=== PATIENT | male | born 1955 | race Caucasian/White ===

== ENCOUNTER 2020-06-08 07:55 | Outpatient (CLI) | payer MEDICARE ==
[2020-06-08 15:12] LABS: Bilirubin Neg (Negative); Blood, Urine Negative (Negative); Clarity Clear (Clear); Glucose, Urine (Dipstick) Normal (Negative); Ketone, Urine Negative (Negative); Leukocyte Negative (Negative); Nitrite Negative (Negative); Protein, Urine (Dipstick) Negative (Neg-Trace); Specific Gravity, Urine 1.015 (1.002-1.036)
[2020-06-08 15:19] LABS: #Basophils 0.1 10x3/uL (0.0-0.2); #Eosinphils 0.2 10x3/uL (0.0-0.5); #Monocytes 0.5 10x3/uL (0.0-1.1); #Neutrophils 4.7 10x3/uL (1.5-8.4); %Basophils 0.8 % (0.0-2.0); %Eosinophils 2.8 % (0.0-6.0); %Lymphocytes 16.2 % (18.0-47.0); %Monocytes 7.8 % (0.0-10.0); %Neutrophils 72.1 % (40.0-75.0); Hemoglobin 14.7 g/dL (14.0-18.0); Mean Corpuscular HGB CONC 33.6 G/DL (32.0-36.0); Mean Corpuscular Hemoglobin 34.2 PG (27.0-33.0); Mean Corpuscular Volume 101.6 fl (80.0-100.0); Mean Platelet Volume 10.7 fl (7.4-10.4); Platelet Count 185 10x3/uL (130-400); RBC Distribution Width 12.1 % (11.5-14.5); White Blood Cell (WBC) Count 6.5 10x3/uL (4.5-11.0)
[2020-06-08 15:25] LABS: RBC/HPF 0-3 HPF (0-3)
[2020-06-08 15:26] LABS: Bacteria/HPF None Seen HPF (None Seen); WBC/HPF 0-3 HPF (0-3)
[2020-06-09 02:03] LABS: SARS-CoV-2 MS2 Positive; SARS-CoV-2 N Gene Negative; SARS-CoV-2 S Gene Negative; SARS-CoV-2 by NAA Not Detected (NotDetected); SARS-CoV-2 orf1ab Negative
== END 2020-06-08 07:56 | disposition home or self-care (01) ==
LOC: LABBT 07:55
PROVIDERS: ATTEND Orthopaedic Surgery Hand Surgery
DX: Z01.818 Encounter for other preprocedural examination (principal); Z20.828 Contact with and (suspected) exposure to other viral communicable diseases; M65.312 Trigger thumb, left thumb; M18.12 Unilateral primary osteoarthritis of first carpometacarpal joint, left hand
CPT/HCPCS: 81001; 85025; 93005; U0003; 87635; 93010

== ENCOUNTER 2020-06-13 06:10 | Day surgery (SDC) | payer MEDICARE ==
[2020-06-12 11:09] VITALS: BMI 34.4
[2020-06-13] MEDS ORDERED: Dexamethasone 4 mg/ml Vial ONE (08:29)
[2020-06-13] MEDS ORDERED: Midazolam HCl 2 mg/2 ml Vial ONE (08:38)
[2020-06-13] MEDS ORDERED: Fentanyl 100 MCG/2 ML VIAL ONE ×3 (08:38→08:53)
[2020-06-13] MEDS ORDERED: Bupivacaine PF 0.5% 30 ML VIAL ONE (08:59)
[2020-06-13] MEDS ORDERED: Betamet Acet/Betamet Na Ph 30 MG/5 ML VIAL ONE (08:59)
[2020-06-13] MEDS ORDERED: Sodium Chloride 0.9% 10 ML ONE (08:59)
[2020-06-13] MEDS ORDERED: Bacitracin Zinc Ointment 30 gm TUBE ONE (08:59)
[2020-06-13] MEDS ORDERED: Bupivacaine HCl 0.5%/Epinephrine 1:200,000/PF 30 ml Vial ONE (09:52)
[2020-06-13] MEDS ORDERED: Dexamethasone 20 MG/5 ML VIAL ONE (09:52)
[2020-06-13] MEDS ORDERED: Lidocaine 1% PF 5 ML VIAL ONE (09:52)
[2020-06-13] MEDS ORDERED: Ondansetron PF 4 MG/2 ML Vial ONE (09:52)
[2020-06-13] MEDS ORDERED: PROPOFOL 200 MG/20 ML VIAL ONE (09:52)
--- NOTE | 2020-06-13 11:54 | RAD ---
Exam: XR Hand Lt 2 View HISTORY: Left thumb carpometacarpal joint arthroplasty COMPARISON: 04/17/2020 FINDINGS/IMPRESSION: 3 intraoperative fluoroscopic images of the left hand/wrist are submitted. Images demonstrate 2 small metallic pins overlying the base of the metacarpals of the thumb and index finger. The trapezium bone is not visualized likely attributable to postoperative change. Correlation with intraoperative f indings is recommended. Fluoroscopy: Time-34 seconds Dose-0.294 mGy
[2020-06-13] MEDS ORDERED: HYDROcodone/Acetaminophen 5/325 mg Tablet ONE (13:14)
--- NOTE | 2020-06-14 08:28 | OP ---
DATE OF PROCEDURE: 06/13/2020 PREOPERATIVE DIAGNOSES: Left thumb osteoarthritis CMC, also left thumb trigger digit. POSTOPERATIVE DIAGNOSES: Left trigger thumb and left thumb osteoarthritis CMC joint with 80% erosion of the chondral surface on both sides of the joint. Large osteophytes and Rice loose bodies. The patient failed conservative treatment for all of these and thus the operation described was indicated. ANESTHESIA: General LMA support block given, axillary one-shot 24 hours. PROCEDURE PERFORMED: 1. Left trigger thumb release. 2. Left ligament replacement tendon position for flexor carpi radialis tendon transfer. 3. C-arm. 4. Short-arm splint application. 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 DESCRIPTION OF PROCEDURE: After successful general endotracheal anesthesia, limb was prepped and draped. After successful block, an augmented LMA technique was used to augment the block and we prepped and draped the limb. Time-out was done appropriately. We outlined incision in a zigzag Elvie fashion palmar and slightly more ulnar than radial at the MP flexion crease over the mass consistent with the A1 rhys. We exsanguinated the limb, inflated tourniquet to 250 mmHg pressure and made this incision, carried through skin and subcutaneous tissue. We identified the digital nerve branches and protected them. Then we found the A1 rhys, protected these nerves and in the midline, with Mineral blade, released them. We elevated, tented up until we saw no tenosynovitis and we were happy with this. We closed the incision with interrupted 4-0 nylon and we then approached the palmar primary approach to the carpometacarpal joint. A J-shaped hockey stick incision was made, carried through skin and subcutaneous tissue until we found the the median nerve innervation and radial nerve innervation. Then, the patient had the incision of the carpometacarpal joint developed until we finished the interval protecting the degree of cutaneous nerves, identified the FCR deep in the wound. Once we identified the FCR, we then split the difference between the extensor tendons at the base of the thumb, abducted, found all joint capsule, tagged it with a cut and tagged 0 Vicryl until we could get the capsule away from the joint. Once this was done, we dissected the radial aspect sharply and bluntly alternate and then on the ulnar aspect, we completely the column of the thenar muscles from the bone until we could see the entire flexor carpi radialis tendon and joint complex. We then identified the trapezium. Once we had identified the joint, tagged the capsule, we placed a cannulated threaded wire and evaluated this in frontal sagittal plane until we are happy with position and we placed a corkscrew from [employer] in the trapezium so it could be manipulated. We protected the flexor carpi radialis throughout the entire dissection, identified the palmar. The patient then had the thumb rotated appropriate nail bed parallel to the palm, we drilled a guidewire in the center beginning 15 mm from the proximal end of the thumb metacarpal into the more ulnar aspect of the thumb. The carpometacarpal joint with the index finger until we found it was in a perfect position. We removed all soft tissues. We then, in order to the patient now had cannulated screw over the guidewire and screw and then freehand with the large curette. Then, the patient was able to have the FCR graft harvested for tendon transfer for first, second metacarpal bases by making 2 incisions; one one-third away from the musculotendinous junction and the other junction. These were developed, denuded of all excess muscle and brought to the wound. At the wrist wound, one-third of the diameter were removed in order to pass through the tunnel. This was done without complication. Once we had done this, we then were able to secure the flexor carpi radialis after pinning it in appropriate position with 2 K-wires from the lateral wall. The two projections did not show any other abnormality. We then made portion of the LRTI, tied it on itself with excellent coaptation. Then the patient left the operating room without evidence of anesthetic or operative complication. Job ID: [id number]
== END 2020-06-13 14:53 | disposition home or self-care (01) ==
LOC: SDC 06:10
PROVIDERS: ATTEND Orthopaedic Surgery Hand Surgery
PROC: 0LN80ZZ Release Left Hand Tendon, Open Approach (ICD-10-PCS; principal; 2020-06-13)
PROC: 0LX60ZZ Transfer Left Lower Arm and Wrist Tendon, Open Approach (ICD-10-PCS; 2020-06-13)
PROC: 0RUT07Z Supplement Left Carpometacarpal Joint with Autologous Tissue Substitute, Open Approach (ICD-10-PCS; 2020-06-13)
PROC: 3E0T3BZ Introduction of Anesthetic Agent into Peripheral Nerves and Plexi, Percutaneous Approach (ICD-10-PCS; 2020-06-13)
DX: M18.0 Bilateral primary osteoarthritis of first carpometacarpal joints (principal); M65.312 Trigger thumb, left thumb; M19.041 Primary osteoarthritis, right hand; M19.042 Primary osteoarthritis, left hand; G89.18 Other acute postprocedural pain; F17.290 Nicotine dependence, other tobacco product, uncomplicated; Z98.84 Bariatric surgery status
CPT/HCPCS: 76000; C1713; J0690; J0702; J1100; J2250; J2405; J2704; J3010; J3490; S0020

== ENCOUNTER 2021-03-02 12:53 | Outpatient (CLI) | payer MEDICARE ==
[2021-03-02 14:44] LABS: #Basophils 0.1 10x3/uL (0.0-0.2); #Eosinphils 0.2 10x3/uL (0.0-0.5); #Monocytes 0.5 10x3/uL (0.0-1.1); #Neutrophils 3.6 10x3/uL (1.5-8.4); %Eosinophils 3.3 % (0.0-6.0); %Lymphocytes 17.5 % (18.0-47.0); %Monocytes 8.7 % (0.0-10.0); %Neutrophils 69.3 % (40.0-75.0); Hemoglobin 14.2 g/dL (13.5-17.5); Mean Corpuscular HGB CONC 33.4 g/dL (32.0-36.0); Mean Corpuscular Hemoglobin 33.6 pg (27.0-33.0); Mean Corpuscular Volume 100.5 fl (81.2-95.1); Mean Platelet Volume 10.5 fl (7.4-10.4); Platelet Count 179 10x3/uL (150-450); RBC Distribution Width 12.6 % (11.5-14.5); Red Blood Cell (RBC) Count 4.23 10x6/uL (4.32-5.72); White Blood Cell (WBC) Count 5.2 10x3/uL (3.5-10.5)
[2021-03-04 00:17] LABS: SARS-CoV-2 PCR by NAA Not Detected (NotDetected)
== END 2021-03-02 12:54 | disposition home or self-care (01) ==
LOC: LABBT 12:53
PROVIDERS: ATTEND Orthopaedic Surgery Hand Surgery
DX: Z01.818 Encounter for other preprocedural examination (principal); M65.4 Radial styloid tenosynovitis [de Quervain]; Z20.822 Contact with and (suspected) exposure to COVID-19
CPT/HCPCS: 85025; 93005; U0003; U0005; 93010

== ENCOUNTER 2021-03-06 05:43 | Day surgery (SDC) | payer MEDICARE ==
[2021-03-05 10:28] VITALS: BMI 35.5
[2021-03-06] MEDS ORDERED: Bacitracin Zinc Ointment 30 gm TUBE ONE (06:36)
[2021-03-06] MEDS ORDERED: Bupivacaine PF 0.5% 30 ML VIAL ONE (06:36)
[2021-03-06] MEDS ORDERED: Betamet Acet/Betamet Na Ph 30 MG/5 ML VIAL ONE (06:36)
[2021-03-06] MEDS ORDERED: Neomycin-Polymyxin 1 ML AMP ONE (06:36)
[2021-03-06] MEDS ORDERED: Dexamethasone 20 MG/5 ML VIAL ONE (07:06)
[2021-03-06] MEDS ORDERED: PROPOFOL 200 MG/20 ML VIAL ONE (07:06)
[2021-03-06] MEDS ORDERED: Ketorolac Tromethamine 30 MG/ML VIAL ONE (07:06)
[2021-03-06] MEDS ORDERED: Ondansetron PF 4 MG/2 ML Vial ONE (07:06)
[2021-03-06] MEDS ORDERED: Fentanyl 100 MCG/2 ML VIAL ONE (07:20)
[2021-03-06] MEDS ORDERED: HYDROcodone/Acetaminophen 5/325 mg Tablet ONE (08:47)
== END 2021-03-06 09:37 | disposition home or self-care (01) ==
LOC: SDC 05:43
PROVIDERS: ATTEND Orthopaedic Surgery Hand Surgery
PROC: 0LN60ZZ Release Left Lower Arm and Wrist Tendon, Open Approach (ICD-10-PCS; principal; 2021-03-06)
PROC: 0LB60ZZ Excision of Left Lower Arm and Wrist Tendon, Open Approach (ICD-10-PCS; 2021-03-06)
DX: M65.842 Other synovitis and tenosynovitis, left hand (principal); M65.4 Radial styloid tenosynovitis [de Quervain]; Z98.84 Bariatric surgery status; Z96.653 Presence of artificial knee joint, bilateral
CPT/HCPCS: 88305; J0690; J0702; J1100; J1885; J2405; J2704; J3010; S0020

== ENCOUNTER 2021-12-13 17:37 | Emergency (ER) | payer MEDICARE ==
[2021-12-13] MEDS ORDERED: Proparacaine 0.5% Opth 15 ML BOT ONE (20:26)
[2021-12-13] MEDS ORDERED: Boostrix 0.5 ML (Tdap) VIAL ONE (20:26)
[2021-12-13] MEDS ORDERED: Fluorescein Opthalmic Strip ONE (20:31)
== END 2021-12-13 21:09 | disposition home or self-care (01) ==
LOC: ERS 17:37
DX: S05.01XA Injury of conjunctiva and corneal abrasion without foreign body, right eye, initial encounter (principal); H11.31 Conjunctival hemorrhage, right eye; X58.XXXA Exposure to other specified factors, initial encounter
CPT/HCPCS: 90471; 90715

== ENCOUNTER 2022-02-08 10:35 | Outpatient (CLI) | payer MEDICARE ==
[2022-02-08 12:06] LABS: #Eosinphils 0.2 10x3/uL (0.0-0.5); #Monocytes 0.6 10x3/uL (0.0-1.1); #Neutrophils 3.6 10x3/uL (1.5-8.4); %Basophils 0.7 % (0.0-2.0); %Eosinophils 3.7 % (0.0-6.0); %Lymphocytes 18.1 % (18.0-47.0); %Monocytes 11.7 % (0.0-10.0); %Neutrophils 65.4 % (40.0-75.0); Hemoglobin 14.7 g/dL (13.5-17.5); Mean Corpuscular HGB CONC 34.6 g/dL (32.0-36.0); Mean Corpuscular Hemoglobin 34.3 pg (27.0-33.0); Mean Corpuscular Volume 99.3 fl (81.2-95.1); Mean Platelet Volume 10.2 fl (7.4-10.4); Platelet Count 174 10x3/uL (150-450); RBC Distribution Width 12.3 % (11.5-14.5); Red Blood Cell (RBC) Count 4.28 10x6/uL (4.32-5.72); White Blood Cell (WBC) Count 5.5 10x3/uL (3.5-10.5)
== END 2022-02-08 10:36 | disposition home or self-care (01) ==
LOC: LABBT 10:35
PROVIDERS: ATTEND Orthopaedic Surgery Hand Surgery
DX: Z01.818 Encounter for other preprocedural examination (principal); M65.331 Trigger finger, right middle finger; Z20.822 Contact with and (suspected) exposure to COVID-19
CPT/HCPCS: 85025; 87811; 93005; 93010

== ENCOUNTER 2022-02-12 09:32 | Day surgery (SDC) | payer MEDICARE ==
[2022-02-08 13:49] VITALS: BMI 35.5
[2022-02-12] MEDS ORDERED: Bacitracin Zinc Ointment 30 gm TUBE ONE (11:12)
[2022-02-12] MEDS ORDERED: Bupivacaine PF 0.5% 30 ML VIAL ONE (11:12)
[2022-02-12] MEDS ORDERED: Betamet Acet/Betamet Na Ph 30 MG/5 ML VIAL ONE (11:12)
[2022-02-12] MEDS ORDERED: fentaNYL Citrate/PF 100 MCG/2 ML SYRINGE ONE (13:56)
[2022-02-12] MEDS ORDERED: CEFAZOLIN 2 GM VIAL ONE (14:09)
[2022-02-12] MEDS ORDERED: Sodium Chloride 0.9% 100 ML ONE (14:09)
[2022-02-12] MEDS ORDERED: PROPOFOL 200 MG/20 ML VIAL ONE (14:20)
[2022-02-12] MEDS ORDERED: ePHEDrine 50 MG/ML VIAL ONE (14:20)
[2022-02-12] MEDS ORDERED: Ondansetron PF 4 MG/2 ML Vial ONE (14:20)
[2022-02-12] MEDS ORDERED: Dexamethasone 20 MG/5 ML VIAL ONE (14:20)
[2022-02-12] MEDS ORDERED: Lidocaine 1% MPF 2 ML VIAL ONE (14:20)
[2022-02-12] MEDS ORDERED: Ketorolac Tromethamine 30 MG/ML VIAL ONE (15:33)
== END 2022-02-12 16:29 | disposition home or self-care (01) ==
LOC: SDC 09:32
PROVIDERS: ATTEND Orthopaedic Surgery Hand Surgery
PROC: 0LN70ZZ Release Right Hand Tendon, Open Approach (ICD-10-PCS; principal; 2022-02-12)
DX: M65.331 Trigger finger, right middle finger (principal); F17.290 Nicotine dependence, other tobacco product, uncomplicated
CPT/HCPCS: J0690; J0702; J1100; J1885; J2405; J2704; J3490; S0020

== ENCOUNTER 2022-02-21 15:30 | Inpatient (IN) | payer MEDICARE ==
[2022-02-21 17:10] LABS: #Eosinphils 0.1 thou/uL (0.0-0.7); #Lymphocytes 1.1 thou/uL (1.20-3.40); #Monocytes 0.8 thou/uL (0.11-0.59); #Neutrophils 5.9 thou/uL (1.40-6.50); %Eosinophils 1.4 % (0.0-10.0); %Lymphocytes 13.7 % (21.0-51.0); %Monocytes 9.6 % (0.0-10.0); %Neutrophils 75.3 % (42.0-75.0); Hemoglobin 14.1 g/dL (14.0-18.0); Mean Corpuscular Hemoglobin 35.9 pg (27.0-31.0); Mean Platelet Volume 8.3 fL (7.4-10.4); Platelet Count 169 thou/uL (130-400); RBC Distribution Width 11.7 % (11.5-14.5); Red Blood Cell (RBC) Count 3.92 mill/uL (4.70-6.10); White Blood Cell (WBC) Count 7.8 thou/uL (4.8-10.8)
[2022-02-21] MEDS ORDERED: fentaNYL Citrate/PF 100 MCG/2 ML SYRINGE ONE (19:16)
[2022-02-21] MEDS ORDERED: Bupivacaine PF 0.5% 30 ML VIAL ONE (19:26)
[2022-02-21] MEDS ORDERED: Bacitracin Zinc Ointment 30 gm TUBE ONE (19:26)
[2022-02-21] MEDS ORDERED: Neomycin-Polymyxin 1 ML AMP ONE (19:26)
[2022-02-21] MEDS ORDERED: PROPOFOL 200 MG/20 ML VIAL ONE (19:45)
[2022-02-21] MEDS ORDERED: Ondansetron PF 4 MG/2 ML Vial ONE (19:45)
[2022-02-21] MEDS ORDERED: Lidocaine 1% MPF 2 ML VIAL ONE (19:45)
[2022-02-21] MEDS ORDERED: Fentanyl 100 MCG/2 ML VIAL ONE ×2 (20:57→21:33)
[2022-02-21] MEDS ORDERED: Fentanyl 100 MCG/2 ML VIAL SLOW IVP PRN (21:01)
[2022-02-21] MEDS ORDERED: HYDROcodone/Acetaminophen 5/325 mg Tablet PO PRN (21:01)
[2022-02-21] MEDS ORDERED: Acetaminophen 325 MG TAB PO PRN (21:01)
[2022-02-21] MEDS ORDERED: Meperidine HCl/PF 25 MG/ML VIAL IM PRN (21:05)
[2022-02-21] MEDS ORDERED: Ketorolac Tromethamine 30 MG/ML VIAL IVP PRN (21:07)
[2022-02-21] MEDS ORDERED: Communication Order-Pharmacy FS PRN (21:15)
[2022-02-21] MEDS ORDERED: Levofloxacin 500 mg/D5W 100 ml Premix Bag ONE (21:50)
[2022-02-21] MEDS ORDERED: TETANUS AND DIPHTHERIA TOX/PF 0.5 ML DISP.SYRIN IM SCH (22:00)
[2022-02-21 22:39] VITALS: BMI 36.9
[2022-02-21] MEDS: HYDROcodone/Acetaminophen 10/325 mg Tablet PO PRN (23:39)
[2022-02-22] MEDS ORDERED: Pen G 2.5 MILL.UNITS/50 ML BAG IVPB SCH (01:00)
[2022-02-22] MEDS: Gentamicin 80 MG/2 ML VIAL IM SCH ×3 (01:04→15:24)
[2022-02-22] MEDS: Vancomycin 1.5 GRAM/300 ML BAG 1.5 GM in Premix Bag 1 BAG IVPB SCH ×2 (01:04→11:36)
[2022-02-22] MEDS: Penicillin G Potassium 2.5 MILL.UNITS in Sodium Chloride 0.9% 50 ML IVPB SCH ×6 (05:00→22:07)
[2022-02-22 06:07] LABS: #Eosinphils 0.1 thou/uL (0.0-0.7); #Lymphocytes 1.4 thou/uL (1.20-3.40); #Monocytes 0.9 thou/uL (0.11-0.59); #Neutrophils 4.2 thou/uL (1.40-6.50); %Basophils 0.6 % (0.0-1.0); %Eosinophils 1.8 % (0.0-10.0); %Lymphocytes 21.5 % (21.0-51.0); %Monocytes 13.6 % (0.0-10.0); %Neutrophils 62.5 % (42.0-75.0); Mean Corpuscular Hemoglobin 35.2 pg (27.0-31.0); Mean Platelet Volume 8.3 fL (7.4-10.4); Platelet Count 156 thou/uL (130-400); RBC Distribution Width 11.9 % (11.5-14.5); Red Blood Cell (RBC) Count 3.71 mill/uL (4.70-6.10); White Blood Cell (WBC) Count 6.7 thou/uL (4.8-10.8)
[2022-02-22] MEDS: Aspirin 81 mg Enteric Coated Tablet PO SCH ×2 (09:22→21:12)
[2022-02-22] MEDS: HYDROcodone/Acetaminophen 10/325 mg Tablet PO PRN ×3 (09:27→21:48)
[2022-02-22] MEDS: Morphine 4 MG/ML VIAL SLOW IVP PRN (18:18)
[2022-02-22] MEDS: Gentamicin Sulfate 80 MG in Premix Bag 1 BAG IVPB SCH (23:32)
[2022-02-23] MEDS: Vancomycin 1.5 GRAM/300 ML BAG 1.5 GM in Premix Bag 1 BAG IVPB SCH ×3 (01:17→23:50)
[2022-02-23] MEDS: Penicillin G Potassium 2.5 MILL.UNITS in Sodium Chloride 0.9% 50 ML IVPB SCH ×6 (03:01→21:43)
[2022-02-23] MEDS: Gentamicin Sulfate 80 MG in Premix Bag 1 BAG IVPB SCH ×3 (06:29→20:18)
[2022-02-23] MEDS: HYDROcodone/Acetaminophen 10/325 mg Tablet PO PRN ×3 (08:19→23:57)
[2022-02-23] MEDS: Aspirin 81 mg Enteric Coated Tablet PO SCH ×2 (08:19→20:21)
[2022-02-23] MEDS ORDERED: hydrALAZINE 20 MG/ML VIAL SLOW IVP PRN (08:39)
[2022-02-23] MEDS ORDERED: Amlodipine 5 MG TAB PO SCH (09:00)
[2022-02-23 10:30] LABS: Vancomycin, Trough 11.1 ug/mL
[2022-02-23] MEDS: Morphine 4 MG/ML VIAL SLOW IVP PRN (14:31)
[2022-02-23] MEDS: traMADol HCl 50 MG TAB PO PRN (20:21)
[2022-02-24] MEDS: HYDROcodone/Acetaminophen 10/325 mg Tablet PO PRN (05:13)
[2022-02-24] MEDS: Gentamicin Sulfate 80 MG in Premix Bag 1 BAG IVPB SCH (05:14)
[2022-02-24] MEDS: Morphine 4 MG/ML VIAL SLOW IVP PRN (07:28)
[2022-02-24] MEDS: traMADol HCl 50 MG TAB PO PRN (08:47)
[2022-02-24] MEDS: Aspirin 81 mg Enteric Coated Tablet PO SCH (08:47)
[2022-02-24] MEDS ORDERED: Amlodipine 10 MG TAB PO SCH (09:00)
[2022-02-24 09:24] VITALS: BP 175/87; TEMP 96.2
== END 2022-02-24 11:00 | disposition home or self-care (01) | DRG 513 ==
LOC: SDC 15:30 → SURG A 21:05
PROVIDERS: ADMIT Orthopaedic Surgery Hand Surgery; ATTEND Orthopaedic Surgery Hand Surgery
PROC: 0LB70ZZ Excision of Right Hand Tendon, Open Approach (ICD-10-PCS; principal; 2022-02-22)
DX: M65.141 Other infective (teno)synovitis, right hand (principal); L02.511 Cutaneous abscess of right hand; Z20.822 Contact with and (suspected) exposure to COVID-19; M19.90 Unspecified osteoarthritis, unspecified site; I16.0 Hypertensive urgency; Z90.49 Acquired absence of other specified parts of digestive tract; Z98.84 Bariatric surgery status
CPT/HCPCS: 36415; 80170; 80202; 82565; 84520; 85025; 85652; 87070; 87077; 87205; 87811; J0360; J1580; J1885; J1956; J2175; J2270; J2405; J2540; J2704; J3010; J3370; S0020